=== PATIENT | male | born 2000 | race Caucasian/White ===

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

== ENCOUNTER → 2023-05-31 10:37 | Outpatient (CLI) | payer OTHER, SELFPAY | PROVIDERS: PCP Family Medicine; Referring Provider Family Medicine; Visit Provider Family Medicine | DX: Z02.5 Encounter for examination for participation in sport (principal); Z13.0 Encounter for screening for diseases of the blood and blood-forming organs and certain disorders involving the immune mechanism | CPT/HCPCS: 36415; 85660 ==